=== PATIENT | female | born 1980 | race Caucasian/White ===

== ENCOUNTER → 2019-04-17 17:57 | Outpatient (CLI) | payer OTHER, SELFPAY ==
[2019-04-17 19:15] LABS: Basophils % 0.5 % (0.1-2.0); Eosinophils # 0.1 K/mm3 (0.0-0.4); Eosinophils % 0.7 % (0.1-12.0); Hematocrit 46.8 % (37.0-47.0); Lymphocytes # 2.7 K/mm3 (0.7-4.5); Lymphocytes % 35.7 % (10-50); Mean Corpuscular HGB Conc 32.1 g/dL (31.8-35.4); Mean Corpuscular Hemoglobin 28.3 pg (27.0-31.2); Mean Corpuscular Volume 88.2 fl (81-99); Mean Platelet Volume 8.2 fl (7.4-10.4); Monocytes # 0.3 K/mm3 (0.1-1.0); Monocytes % 3.4 % (1.7-9.3); Neutrophils # 4.4 K/mm3 (1.8-7.8); Neutrophils % 59.6 % (37.0-80.0); Platelet Count 330 K/mm3 (142-424); Red Cell Distribution Width 13.1 % (11.5-17.5); White Blood Count 7.4 K/mm3 (4.8-10.8)
[2019-04-17 19:17] LABS: Alanine Aminotransferase 10 U/L (12-78); Albumin Level 3.7 gm/dL (3.4-5.0); Alkaline Phosphatase 59 U/L (46-116); Anion Gap 11.7 mEq/L (5-15); Aspartate Amino Transferase 4 U/L (15-37); Bilirubin,Total 0.2 mg/dL (0.2-1.0); Blood Urea Nitrogen 7 mg/dL (7-18); Calcium 8.7 mg/dL (8.5-10.1); Carbon Dioxide 29 mmol/L (21.0-32.0); Chloride 103 mmol/L (98-107); Chol/HDL Ratio 4.9 (1-3.5); Cholesterol 200 mg/dL (140-200); Estimated Glomerular Filt Rate 92 ml/min (>60); GFR (African American) 112 ML/MIN (>60); Globulin 3.8 gm/dl (1.3-3.2); Glucose 106 mg/dL (74-106); HDL Cholesterol 41 mg/dL (29-89); LDL Cholesterol 116 mg/dL (0-130); Potassium 3.7 mmoL/L (3.5-5.1); Sodium 140 mmol/L (136-145); Thyroid Stimulating Hormone 1.31 uIU/ml (0.358-3.740); Total Protein,Serum 7.5 gm/dL (6.4-8.2); Triglycerides 215 mg/dL (30-200); VLDL Cholesterol 43 mg/dL (0-40)
[2019-04-17 21:46] LABS: Amphetamine/Metha Screen,Urine Negative ng/mL (<1000); Barbiturates Screen,Urine Negative ng/mL (<200); Benzodiazepines Screen,Urine Negative ng/mL (<200); Cannabinoid Screen,Urine Positive ng/mL (<50); Cocaine Screen,Urine Negative ng/mL (<300); Methadone Screen,Urine Negative ng/mL (<300); Opiate Screen,Urine Negative ng/mL (<300); Phencyclidine Screen,Urine Negative ng/mL (<25)
[2019-04-19 11:07] LABS: Vitamin D 25 Hydroxy 14.8 ng/mL (30.0-100.0)
== END ==
PROVIDERS: Visit Provider Emergency Medicine
DX: J44.9 Chronic obstructive pulmonary disease, unspecified (principal); M79.604 Pain in right leg; M79.605 Pain in left leg; R25.2 Cramp and spasm; R06.2 Wheezing; R06.00 Dyspnea, unspecified; R05 Cough; E55.9 Vitamin D deficiency, unspecified; F17.210 Nicotine dependence, cigarettes, uncomplicated; E66.9 Obesity, unspecified; Z68.41 Body mass index [BMI] 40.0-44.9, adult
CPT/HCPCS: 80053; 80061; 80305; 82652; 84439; 84443; 85025

== ENCOUNTER → 2019-11-27 17:26 | Outpatient (CLI) | payer OTHER, SELFPAY ==
[2019-11-27 18:08] LABS: Basophils % 0.5 % (0.1-2.0); Eosinophils # 0.1 K/mm3 (0.0-0.4); Eosinophils % 1.3 % (0.1-12.0); Hematocrit 46.1 % (37.0-47.0); Hemoglobin 16.2 g/dL (12.2-16.2); Lymphocytes # 3.1 K/mm3 (0.7-4.5); Lymphocytes % 39.8 % (10-50); Mean Corpuscular HGB Conc 35.1 g/dL (31.8-35.4); Mean Corpuscular Hemoglobin 30.9 pg (27.0-31.2); Mean Platelet Volume 9.2 fl (7.4-10.4); Monocytes # 0.3 K/mm3 (0.1-1.0); Monocytes % 3.2 % (1.7-9.3); Neutrophils # 4.3 K/mm3 (1.8-7.8); Neutrophils % 55.2 % (37.0-80.0); Platelet Count 284 K/mm3 (142-424); Red Blood Count 5.24 M/mm3 (4.20-5.40); Red Cell Distribution Width 13.4 % (11.5-17.5); White Blood Count 7.7 K/mm3 (4.8-10.8)
[2019-11-27 18:10] LABS: Chloride 105 mmol/L (98-107); Potassium 4.1 mmoL/L (3.5-5.1); Sodium 140 mmol/L (136-145)
[2019-11-27 18:12] LABS: Blood Urea Nitrogen 7 mg/dl (7-17); Estimated Glomerular Filt Rate 176 ml/min (>60); GFR (African American) 213 ML/MIN (>60)
[2019-11-27 18:13] LABS: Alanine Aminotransferase 14 U/L (12-78); Albumin Level 4.2 g/dl (3.5-5.0); Albumin/Globulin Ratio 1.2 (1.1-1.8); Alkaline Phosphatase 55 U/L (38-126); Anion Gap 13.1 mEq/L (5-15); Aspartate Amino Transferase 20 U/L (14-36); Bilirubin,Total 0.4 mg/dl (0.2-1.3); Carbon Dioxide 26 mmol/L (22.0-30.0); Cholesterol 251 mg/dl (140-200); Globulin 3.4 g/dL (1.3-3.2); Total Protein,Serum 7.6 g/dl (6.3-8.2); Triglycerides 204 mg/dl (30-150); VLDL Cholesterol 41 mg/dL (0-40)
[2019-11-27 18:14] LABS: Calcium 9.9 mg/dl (8.4-10.2); Chol/HDL Ratio 4.7 (1-3.5); Glucose 108 mg/dl (74-100); HDL Cholesterol 53 mg/dl (40-60)
[2019-11-27 18:25] LABS: Direct LDL Cholesterol 146.07 mg/dL (100-129)
[2019-11-27 18:31] LABS: 25-OH Vitamin D, Total 25.8 ng/mL (30-100)
[2019-11-27 18:45] LABS: Thyroid Stimulating Hormone 1.27 uIU/mL (0.465-4.68)
== END ==
PROVIDERS: Visit Provider Emergency Medicine
DX: J44.9 Chronic obstructive pulmonary disease, unspecified (principal); R25.2 Cramp and spasm; E55.9 Vitamin D deficiency, unspecified
CPT/HCPCS: 80053; 80061; 82306; 84439; 84443; 85025

== ENCOUNTER → 2021-03-26 15:21 | Outpatient (CLI) | payer OTHER, SELFPAY ==
[2021-03-26 15:41] LABS: Basophils # 0.1 K/mm3 (0-0.2); Basophils % 1.5 % (0.1-2.0); Chloride 103 mmol/L (98-107); Eosinophils # 0.1 K/mm3 (0.0-0.4); Eosinophils % 1.2 % (0.1-12.0); Hematocrit 48.6 % (37.0-47.0); Hemoglobin 16.5 g/dL (12.2-16.2); Lymphocytes # 2.9 K/mm3 (0.7-4.5); Lymphocytes % 33.9 % (10-50); Mean Corpuscular HGB Conc 33.9 g/dL (31.8-35.4); Mean Corpuscular Hemoglobin 29.6 pg (27.0-31.2); Mean Corpuscular Volume 87.4 fl (81-99); Mean Platelet Volume 9.8 fl (7.4-10.4); Monocytes # 0.3 K/mm3 (0.1-1.0); Monocytes % 3.7 % (1.7-9.3); Neutrophils # 5.1 K/mm3 (1.8-7.8); Neutrophils % 59.7 % (37.0-80.0); Platelet Count 381 K/mm3 (142-424); Red Blood Count 5.56 M/mm3 (4.20-5.40); Red Cell Distribution Width 13.8 % (11.5-17.5); White Blood Count 8.5 K/mm3 (4.8-10.8)
[2021-03-26 15:42] LABS: Potassium 3.8 mmoL/L (3.5-5.1); Sodium 140 mmol/L (136-145)
[2021-03-26 15:44] LABS: Alanine Aminotransferase 22 U/L (12-78); Anion Gap 11.8 mEq/L (5-15); Aspartate Amino Transferase 32 U/L (14-36); Blood Urea Nitrogen 4 mg/dl (7-17); Carbon Dioxide 29 mmol/L (22.0-30.0); Estimated Glomerular Filt Rate 174 ml/min (>60); GFR (African American) 211 ML/MIN (>60)
[2021-03-26 15:45] LABS: Albumin Level 4.5 g/dl (3.5-5.0); Albumin/Globulin Ratio 1.3 (1.1-1.8); Alkaline Phosphatase 83 U/L (38-126); Bilirubin,Total 0.4 mg/dl (0.2-1.3); Calcium 9.6 mg/dl (8.4-10.2); Chol/HDL Ratio 5.9 (1-3.5); Cholesterol 234 mg/dl (140-200); Globulin 3.4 g/dL (1.3-3.2); Glucose 109 mg/dl (74-100); HDL Cholesterol 40 mg/dl (40-60); Total Protein,Serum 7.9 g/dl (6.3-8.2); Triglycerides 278 mg/dl (30-150); VLDL Cholesterol 56 mg/dL (0-40)
[2021-03-26 16:01] LABS: Direct LDL Cholesterol 151.95 mg/dL (100-129)
[2021-03-26 16:02] LABS: 25-OH Vitamin D, Total 16.6 ng/mL (30-100)
[2021-03-26 16:08] LABS: Free T4 (Free Thyroxine) 1.36 ng/dl (0.78-2.19)
[2021-03-26 16:22] LABS: Thyroid Stimulating Hormone 0.55 uIU/mL (0.465-4.68)
== END ==
PROVIDERS: Visit Provider Emergency Medicine
DX: I10 Essential (primary) hypertension (principal); M79.2 Neuralgia and neuritis, unspecified; J44.9 Chronic obstructive pulmonary disease, unspecified; E66.01 Morbid (severe) obesity due to excess calories; Z68.44 Body mass index [BMI] 60.0-69.9, adult; E55.9 Vitamin D deficiency, unspecified
CPT/HCPCS: 80053; 80061; 82306; 84439; 84443; 85025

== ENCOUNTER → 2022-07-17 14:04 | Outpatient (CLI) | payer OTHER, SELFPAY ==
[2022-07-17 14:40] LABS: Alanine Aminotransferase 15 U/L (12-78); Albumin Level 4.1 g/dl (3.5-5.0); Albumin/Globulin Ratio 1.2 (1.1-1.8); Alkaline Phosphatase 64 U/L (38-126); Anion Gap 5.8 mEq/L (5-15); Aspartate Amino Transferase 23 U/L (14-36); Bilirubin,Total 0.3 mg/dl (0.2-1.3); Blood Urea Nitrogen 4 mg/dl (7-17); Calcium 8.9 mg/dl (8.4-10.2); Carbon Dioxide 31 mmol/L (22.0-30.0); Chloride 102 mmol/L (98-107); Chol/HDL Ratio 4.8 (1-3.5); Cholesterol 239 mg/dl (140-200); Estimated Glomerular Filt Rate 173 ml/min (>60); GFR (African American) 210 ML/MIN (>60); Globulin 3.3 g/dL (1.3-3.2); Glucose 122 mg/dl (74-100); HDL Cholesterol 50 mg/dl (40-60); Potassium 3.8 mmoL/L (3.5-5.1); Sodium 135 mmol/L (136-145); Total Protein,Serum 7.4 g/dl (6.3-8.2); Triglycerides 155 mg/dl (30-150); VLDL Cholesterol 31 mg/dL (0-40)
[2022-07-17 14:52] LABS: Direct LDL Cholesterol 145.66 mg/dL (100-129)
[2022-07-17 14:58] LABS: T4 (Thyroxine) 7.9 ug/dl (5.53-11.0)
[2022-07-17 15:11] LABS: Thyroid Stimulating Hormone 1.87 uIU/mL (0.465-4.68)
[2022-07-27 20:19] LABS: 1,25 Dihydroxy Vitamin D 61 pg/mL (.); 1,25-Dihydroxy, Vitamin D-2 14 pg/mL (.); 1,25-Dihydroxy, Vitamin D-3 47 pg/mL (.)
== END ==
PROVIDERS: PCP Emergency Medicine; Visit Provider Emergency Medicine
DX: R53.83 Other fatigue (principal); E66.9 Obesity, unspecified; Z68.41 Body mass index [BMI] 40.0-44.9, adult; Z79.899 Other long term (current) drug therapy
CPT/HCPCS: 80053; 80061; 82652; 84436; 84443

== ENCOUNTER → 2022-08-28 09:41 | Outpatient (CLI) | payer OTHER, SELFPAY ==
[2022-08-28 15:17] LABS: Amphetamine/Metha Screen,Urine Negative ng/ml (<1000); Barbiturates Screen,Urine Negative ng/ml (<200)
[2022-08-28 15:18] LABS: Benzodiazepines Screen,Urine Negative ng/ml (<200)
[2022-08-28 15:19] LABS: Cannabinoid Screen,Urine Positive ng/ml (<50); Cocaine Screen,Urine Negative ng/ml (<300)
[2022-08-28 15:20] LABS: Methadone Screen,Urine Negative ng/ml (<300); Opiate Screen,Urine Negative ng/ml (<300)
[2022-08-28 15:21] LABS: Phencyclidine Screen,Urine Negative ng/ml (<25)
== END ==
PROVIDERS: PCP Emergency Medicine; Visit Provider Emergency Medicine
DX: Z79.899 Other long term (current) drug therapy (principal)
CPT/HCPCS: 80305

== ENCOUNTER → 2023-01-07 20:46 | Outpatient (CLI) | payer OTHER, SELFPAY ==
[2023-01-07 21:18] LABS: Chol/HDL Ratio 4.5 (1-3.5); Cholesterol 248 mg/dl (140-200); HDL Cholesterol 55 mg/dl (40-60); Triglycerides 167 mg/dl (30-150); VLDL Cholesterol 33 mg/dL (0-40)
[2023-01-07 21:23] LABS: Hemoglobin A1C 5.7 % (4.0-6.0)
[2023-01-07 21:29] LABS: Direct LDL Cholesterol 141.77 mg/dL (100-129)
== END ==
PROVIDERS: PCP Internal Medicine; Visit Provider Internal Medicine
DX: Z83.3 Family history of diabetes mellitus (principal)
CPT/HCPCS: 80061; 83036

== ENCOUNTER 2023-11-04 09:24 | Outpatient (CLI) | payer OTHER, SELFPAY ==
[2023-11-04 18:23] LABS: Basophils % 0.5 % (0.1-2.0); Eosinophils # 0.1 K/mm3 (0.0-0.4); Hemoglobin 16.2 g/dL (12.2-16.2); Lymphocytes # 1.8 K/mm3 (0.7-4.5); Lymphocytes % 20.4 % (10-50); Mean Corpuscular HGB Conc 31.8 g/dL (31.8-35.4); Mean Corpuscular Hemoglobin 29.3 pg (27.0-31.2); Mean Corpuscular Volume 92.1 fl (81-99); Mean Platelet Volume 8.6 fl (7.4-10.4); Monocytes # 0.3 K/mm3 (0.1-1.0); Monocytes % 3.4 % (1.7-9.3); Neutrophils # 6.7 K/mm3 (1.8-7.8); Neutrophils % 74.7 % (37.0-80.0); Platelet Count 268 K/mm3 (142-424); Red Blood Count 5.54 M/mm3 (4.20-5.40); Red Cell Distribution Width 14.6 % (11.5-17.5)
[2023-11-04 18:31] LABS: Alanine Aminotransferase 20 U/L (12-78); Alkaline Phosphatase 81 U/L (38-126); Anion Gap 10.3 mEq/L (5-15); Aspartate Amino Transferase 21 U/L (14-36); Bilirubin,Total 0.7 mg/dl (0.2-1.3); Blood Urea Nitrogen 4 mg/dl (7-17); Calcium 9.5 mg/dl (8.4-10.2); Carbon Dioxide 32 mmol/L (22.0-30.0); Chloride 101 mmol/L (98-107); Chol/HDL Ratio 4.9 (1-3.5); Cholesterol 279 mg/dl (140-200); Estimated Glomerular Filt Rate 173 ml/min (>60); GFR (African American) 209 ML/MIN (>60); Globulin 3.9 g/dL (1.3-3.2); Glucose 98 mg/dl (74-100); HDL Cholesterol 57 mg/dl (40-60); Potassium 4.3 mmoL/L (3.5-5.1); Sodium 139 mmol/L (136-145); Total Protein,Serum 7.9 g/dl (6.3-8.2); Triglycerides 129 mg/dl (30-150); VLDL Cholesterol 26 mg/dL (0-40)
[2023-11-04 18:43] LABS: Direct LDL Cholesterol 180.34 mg/dL (100-129)
[2023-11-04 18:49] LABS: 25-OH Vitamin D, Total 20.1 ng/mL (30-100)
[2023-11-04 19:00] LABS: Thyroid Stimulating Hormone 0.93 uIU/mL (0.465-4.68)
[2023-11-04 19:56] LABS: Vitamin B12 311 pg/mL (239-931)
[2023-11-04 20:04] LABS: Microalbumin/Creatinine Ratio 23.7
[2023-11-04 20:12] LABS: Creatinine,Urine Random 67 mg/dL (Not Estab.)
[2023-11-04 20:12] LABS: Hemoglobin A1C 5.7 % (4.0-6.0)
== END 2023-11-04 23:59 | disposition home or self-care (01) ==
LOC: LAB.DROPOF 11-05 09:25
PROVIDERS: PCP Internal Medicine; Visit Provider Internal Medicine
DX: E55.9 Vitamin D deficiency, unspecified (principal); Z68.42 Body mass index [BMI] 45.0-49.9, adult; E66.9 Obesity, unspecified; I10 Essential (primary) hypertension; F17.210 Nicotine dependence, cigarettes, uncomplicated
CPT/HCPCS: 80050; 80053; 80061; 82043; 82306; 82570; 82607; 83036; 84443; 85025